=== PATIENT | male | born 1980 | race Caucasian/White ===

== ENCOUNTER 2017-03-09 12:35 | Emergency (ER) | payer OTHER ==
[~2017-03-09] VITALS: Ht 177.8 cm; Wt 86.2 kg
[2017-03-09 13:04] LABS: ABSOLUTE BASOPHIL COUNT 0.1 /CUMM (0.0-0.2); ABSOLUTE EOSINOPHIL COUNT 0.1 /CUMM (0.0-0.7); ABSOLUTE GRANULOCYTE CT 10.4 /CUMM (1.4-6.5); ABSOLUTE LYMPH COUNT 1.8 /CUMM (1.2-3.4); ABSOLUTE MONOCYTE COUNT 0.5 /CUMM (0.10-0.60); BASOPHIL % 0.4 % (0.0-2.0); EOSINOPHIL % 0.5 % (0-5); MEAN CORPUSCULAR HGB 30.2 PG (27.0-31.0); MEAN CORPUSCULAR HGB CONC 34.4 G/DL (33.0-37.0); MEAN CORPUSCULAR VOLUME 87.8 FL (80.0-94.0); MEAN PLATELET VOLUME 8.5 FL (7.4-10.4); PLATELET COUNT 229 /CUMM (130-400); RBC DISTRIBUTION WIDTH 12.9 % (11.5-14.5); RED BLOOD CELL CT 5.47 /CUMM (4.70-6.10); WHITE BLOOD CELL COUNT 12.8 /CUMM (4.8-10.8)
[2017-03-09 13:06] LABS: GRANULOCYTE % 81.1 % (42.2-75.2)
--- NOTE | 2017-03-09 13:51 | ED GI/GU/ABDOMINAL COMPLAINT ---
History of Present Illness General Chief Complaint: General Adult Stated Complaint: URI;VOMITING;CHEST CONGESTION Source: patient, family, old records Exam Limitations: no limitations Vital Signs & Intake/Output Vital Signs & Intake/Output Vital Signs Date Time Temp Pulse Resp B/P B/P Pulse O2 O2 Flow FiO2 Mean Ox Delivery Rate 03/09 1242 97.5 88 18 132/90 99 Room Air Allergies Coded Allergies: Penicillins (Severe, SWELL UP 02/19/16) Reconcile Medications Albuterol Sulfate (Proair Hfa) 90 MCG HFA.AER.AD 2-4 PUF INH Q4-6 PRN PRN shortness of breath Azithromycin (Zithromax) 250 MG TABLET 1 TAB PO DAILY bronchitis 2 tabs today then 1 tab for then next 4 days Benzonatate (Tessalon Perle) 100 MG CAPSULE 1 CAP PO TID PRN cough Famotidine (Pepcid) 20 MG TABLET 1 TAB PO BID gastritis Metoclopramide HCl (Reglan) 10 MG TABLET 1 TAB PO 4 TIMES/DAY PRN nausea/ vomiting 30 minutes before meals and bedtime Ondansetron (Zofran Odt) 4 MG TAB.RAPDIS 1 TAB SL TID PRN nausea Ranitidine HCl (Zantac) (Unknown Strength) TABLET (Unknown Dose) PO DAILY ACID REFLUX (Reported) Triage Note: PT COMPLAINS OF COUGH PRODUCTIVE OF GREEN SPUTUM FOR THE PAST 4 DAYS. ALSO STATES THAT FOR THE PAST 1.5 MONTHS HE HAS BEEN GETTING N/V ABD PAIN AFTER EATING. STATES THAT HE JUST FEELS WEAK , UNABLE TO SLEEP WELL Triage Nurses Notes Reviewed? yes Onset: 1 month Duration: day(s):, constant, continues in ED Timing: recent history Quality/Severity: aching, moderate, vomiting Location: epigastric, right upper quadrant Radiation: no radiation Activities at Onset: eating Prior Abdominal Problems: none Past Sexual History: Unobtainable at this time Modifying Factors: Worsens With: eating. Associated Symptoms: abdominal pain, loss of appetite, nausea/vomiting HPI: 1 month prior to admission patient began his final tapering of Suboxone last dose 2 days ago. Over this time. He complains of nausea vomiting heartburn reflux epigastric and right upper quadrant pain described as achy nonradiating occurring intermittently with changes in stooling. 4 days prior to admission he complains of nasal congestion productive cough of yellow sputum malaise. He denies fever chills chest pain shortness of breath headache dysuria rash bleeding. Past History Travel History Traveled to [place] past 21 day No Medical History Any Pertinent Medical History? 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 No Review of Systems Review of Systems Constitutional: Reports: see HPI, malaise. EENTM: Reports: see HPI, nasal congestion. Respiratory: Reports: see HPI. Cardiovascular: Reports: no symptoms. GI: Reports: see HPI, abdominal pain, nausea, changes in stool, vomiting. Genitourinary: Reports: no symptoms. Musculoskeletal: Reports: no symptoms. Skin: Reports: no symptoms. Neurological/Psychological: Reports: no symptoms. Hematologic/Endocrine: Reports: no symptoms. Immunologic/Allergic: Reports: no symptoms. All Other Systems: Reviewed and Negative Physical Exam Physical Exam General Appearance: well developed/nourished, alert, awake, anxious, moderate distress, obese Head: atraumatic, normal appearance, tenderness (frontal sinus percussion) Eyes: Bilateral: normal appearance, PERRL, EOMI, normal inspection. Ears, Nose, Throat, Mouth: hearing grossly normal, moist mucous membrane Neck: normal inspection, supple, full range of motion, normal alignment Respiratory: normal breath sounds, chest non-tender, no respiratory distress, quiet respiration, lungs clear Cardiovascular: regular rate/rhythm, normal peripheral pulses, norml femoral pulses equa Peripheral Pulses: 4+ carotid (R), 4+ carotid (L) Gastrointestinal: normal bowel sounds, soft, non-tender, no organomegaly Male Genitals: normal genitalia Back: normal inspection, normal range of motion Extremities: normal range of motion, no ligament instability Neurologic/Psych: no motor/sensory deficits, awake, alert, oriented x 3, normal gait, normal mood/affect Skin: intact, normal color, warm/dry Core Measures ACS in differential dx? No Severe Sepsis Present: No Septic Shock Present: No Progress Differential Diagnosis: biliary colic, cholecystitis, gastritis, pancreatitis, UTI/pyelo Plan of Care: Orders Procedure Date/time Status URINALYSIS 03/09 1421 Complete LIPASE 03/09 1245 Complete LACTIC ACID 03/09 1245 Complete COMPREHENSIVE METABOLIC PANEL 03/09 1245 Complete CBC WITHOUT DIFFERENTIAL 03/09 1245 Complete AMYLASE 03/09 1245 Complete Current Medications Sig/Ximena Start time Last Medication Dose Stop Time Status Admin Oxymetazoline HCl 2 SPRAY ONCE ONE 03/09 1500 UNVr (Afrin) 03/09 1501 Laboratory Tests 03/09/17 1430: Urine Color STRAW, Urine Clarity CLEAR, Urine pH 7.0, Ur Specific Haskell <= 1.005, Urine Protein NEG, Urine Ketones NEG, Urine Nitrite NEG, Urine Bilirubin NEG, Urine Urobilinogen 0.2, Ur Leukocyte Esterase NEG, Ur Microscopic EXAM NOT REQUIRED, Urine Hemoglobin NEG, Urine Glucose NEG 03/09/17 1253: Anion Gap 13, Estimated GFR > 60, BUN/Creatinine Ratio 11.0, Glucose 111 H, Lactic Acid 1.0, Calcium 9.8, Total Bilirubin 0.9, AST 45, ALT 61, Alkaline Phosphatase 91, Total Protein 7.7, Albumin 5.0, Globulin 2.7, Albumin/Globulin Ratio 1.9, Amylase 47, Lipase 42, CBC w Diff NO MAN DIFF REQ, RBC 5.47, MCV 87.8 , MCH 30.2, RDW 12.9, MPV 8.5, Gran % 81.1 H, Lymphocytes % 14.3 L, Monocytes % 3.7, Eosinophils % 0.5, Basophils % 0.4, Absolute Granulocytes 10.4 H, Absolute Lymphocytes 1.8, Absolute Monocytes 0.5, Absolute Eosinophils 0.1, Absolute Basophils 0.1, PUBS MCHC 34.4 Diagnostic Imaging: Viewed by Me: Radiology Read, CT Scan. Discussed w/RAD: Radiology Read, CT Scan. Radiology Impression: No acute findings of the abdomen or pelvis. No acute inflammatory changes. Hypoattenuating right renal lesions measure slightly higher than simple fluid. Consider nonemergent renal ultrasound to further clarify. CXR Impression: no acute abnormality Initial ED EKG: none Departure Departure Time of Disposition: 1455 Disposition: HOME OR SELF CARE Condition: Stable Clinical Impression Primary Impression: Sinusitis Secondary Impressions: Abdominal pain, Bronchitis, Nausea & vomiting Referrals: PATIENT HAS NO PRIMARY CARE DR (PCP/Family) Departure Forms: Customer Survey General Discharge Information RELEASE- WORK Prescriptions: Current Visit Scripts Azithromycin (Zithromax) 1 TAB PO DAILY #6 TAB 2 tabs today then 1 tab for then next 4 days Famotidine (Pepcid) 1 TAB PO BID #60 TAB Metoclopramide HCl (Reglan) 1 TAB PO 4 TIMES/DAY PRN nausea/vomiting #50 TAB 30 minutes before meals and bedtime Ondansetron (Zofran Odt) 1 TAB SL TID PRN nausea #10 TAB Albuterol Sulfate (Proair Hfa) 2-4 PUF INH Q4-6 PRN PRN shortness of breath #1 INHAL Benzonatate (Tessalon Perle) 1 CAP PO TID PRN cough #21 CAP
--- NOTE | 2017-03-09 14:26 | CT SCAN REPORT ---
EXAMINATION: CT ABDOMEN WITH CONTRAST CLINICAL INFORMATION: Nausea and vomiting. Diarrhea. Abdominal pain. COMPARISON: None TECHNIQUE: Multidetector volumetric imaging was performed of the abdomen following administration of 95 mL Optiray 320 intravenous contrast. Sagittal and coronal reformatted images were obtained on the technologist's workstation. DLP: 332 mGy-cm FINDINGS: LUNG BASES: The visualized lung bases are unremarkable. LIVER, GALLBLADDER, AND BILIARY TREE: The liver is normal in size, shape, and attenuation. No focal hepatic lesion or biliary ductal dilatation is present. The gallbladder is unremarkable with no evidence of radiopaque gallstones, gallbladder wall thickening, or obvious pericholecystic inflammatory changes. PANCREAS: Unremarkable. SPLEEN: Unremarkable. ADRENAL GLANDS: Unremarkable. KIDNEYS AND URETERS: The kidneys are normal in size, shape, and attenuation. No hydronephrosis, hydroureter, or calculi seen. No perinephric stranding. There is a 1.2 cm hypoattenuating right upper pole lesion which measures slightly higher than simple fluid attenuation. An adjacent hypoattenuating lesion also measures slightly higher than simple fluid. GASTROINTESTINAL TRACT: The stomach and small bowel are unremarkable. No dilated loops of bowel or evidence of obstruction. Normal appendix. The majority of the colon is decompressed which limits evaluation for wall thickening. No definite evidence of wall thickening. No adjacent inflammatory change. No free air or free fluid. ABDOMINAL WALL: No significant hernia is appreciated. LYMPH NODES: Normal. VASCULAR: Unremarkable. OSSEOUS STRUCTURES: No acute or suspicious osseous abnormality. IMPRESSION: No acute findings of the abdomen or pelvis. No acute inflammatory changes. Hypoattenuating right renal lesions measure slightly higher than simple fluid. Consider nonemergent renal ultrasound to further clarify.
--- NOTE | 2017-03-09 14:28 | RADIOLOGY REPORT ---
EXAMINATION: XR CHEST CLINICAL INFORMATION: Productive cough. COMPARISON: None TECHNIQUE: 2 views of the chest were obtained. FINDINGS: The cardiomediastinal silhouette is unremarkable. The lungs and pleural spaces appear clear without evidence of congestion, consolidation, or significant appearing effusion or atelectasis. There is no evidence of pneumothorax or pulmonary edema. Included osseous structures appear largely unremarkable. IMPRESSION: Unremarkable examination.
[2017-03-09] MEDS ORDERED: ZANTAC150 M1 PO (14:37)
[2017-03-09] MEDS ORDERED: TESSALON PERLE100 M1 PO (14:59)
[2017-03-09] MEDS ORDERED: PROAIR HFA8.5 GM INH (14:59)
[2017-03-09] MEDS ORDERED: PEPCID20 M1 PO (14:59)
[2017-03-09] MEDS ORDERED: ZOFRAN ODT4 M1 SL (14:59)
[2017-03-09] MEDS ORDERED: ZITHROMAX250 M2 PO (14:59)
[2017-03-09] MEDS ORDERED: REGLAN10 M1 PO (14:59)
[2017-03-09 15:02] VITALS: BP 133/80
== END 2017-03-09 15:34 ==
LOC: ERH 12:35
PROVIDERS: Emergency Medicine
DX: J32.9 Chronic sinusitis, unspecified (principal); J40 Bronchitis, not specified as acute or chronic; R11.2 Nausea with vomiting, unspecified; R10.13 Epigastric pain
CPT/HCPCS: 74177; 81003; 96374; 96375; J0131; J2765; Q9965

== ENCOUNTER 2018-03-04 19:42 | Emergency (ER) | payer OTHER ==
[~2018-03-04] VITALS: Ht 177.8 cm; Wt 88.5 kg
[~2018-03-04 19:42] MED LIST: BACTRIM DS TAB1 EACH PO; CLEOCIN HCL300 M1 PO; IBUPROFEN800 M1 PO; PEPCID20 M1 PO; PROAIR HFA8.5 GM INH; REGLAN10 M1 PO; TESSALON PERLE100 M1 PO; ZANTAC150 M1 PO; ZITHROMAX250 M2 PO; ZOFRAN ODT4 M1 SL
[2018-03-04 20:08] VITALS: BP 146/87
--- NOTE | 2018-03-04 20:49 | ED UPPER/LOWER EXTREMITY COMPL ---
History of Present Illness General Chief Complaint: Lower Extremity Problems Stated Complaint: RIGHT LEG PAIN Source: patient Exam Limitations: no limitations Vital Signs & Intake/Output Vital Signs & Intake/Output Vital Signs Date Time Temp Pulse Resp B/P B/P Pulse O2 O2 Flow FiO2 Mean Ox Delivery Rate 03/04 2008 98.2 91 18 146/87 98 Room Air Allergies Coded Allergies: Penicillins (Severe, SWELL UP 02/19/16) Reconcile Medications Albuterol Sulfate (Proair Hfa) 90 MCG HFA.AER.AD 2-4 PUF INH Q4-6 PRN PRN shortness of breath Azithromycin (Zithromax) 250 MG TABLET 1 TAB PO DAILY bronchitis 2 tabs today then 1 tab for then next 4 days Benzonatate (Tessalon Perle) 100 MG CAPSULE 1 CAP PO TID PRN cough Clindamycin HCl (Cleocin HCl) 300 MG CAPSULE 1 CAP PO TID abscess Cyclobenzaprine HCl 10 MG TABLET 1 TAB PO TID PRN PAIN Famotidine (Pepcid) 20 MG TABLET 1 TAB PO BID gastritis Ibuprofen 800 MG TABLET 1 TAB PO TID PRN pain Metoclopramide HCl (Reglan) 10 MG TABLET 1 TAB PO 4 TIMES/DAY PRN nausea/ vomiting 30 minutes before meals and bedtime Ondansetron (Zofran Odt) 4 MG TAB.RAPDIS 1 TAB SL TID PRN nausea Ranitidine HCl (Zantac) (Unknown Strength) TABLET (Unknown Dose) PO DAILY ACID REFLUX (Reported) Sulfamethoxazole/Trimethoprim (Bactrim Ds Tablet) 800 MG-160 MG TABLET 1 TAB PO BID abscess Triage Note: PT FROM HOME C/O RIGHT KNEE PAIN X1 WEEK, PT WAS SEEN AT WALK IN CLINIC TODAY AND TOLD TO COME TO THE ER FOR AN ULTRSOUND TO R/O CLOT. PT STATES HE NOTICED THE SWELLING, REDNESS, AND WARM TO TOUCH TODAY. VSS. Triage Nurses Notes Reviewed? yes HPI: 38M no PMH presents with one day of right knee and calf swelling. Noticed it over the course of the day. He has no pain, warmth, or burning in the area, but it is significantly more swollen than his left. He drove down and back from [place] in late December, smokes, and fell off a ladder a week ago, but did not break any bones. No family history of VTE. Denies chest pain, palpitations, SOB, lightheadedness. Past History Travel History Traveled to [place] past 21 day No Medical History Any Pertinent Medical History? 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 No Review of Systems Review of Systems Constitutional: Reports: no symptoms. EENTM: Reports: no symptoms. Respiratory: Reports: no symptoms. Cardiovascular: Reports: no symptoms. Gastrointestinal/Abdominal: Reports: no symptoms. Genitourinary: Reports: no symptoms. Musculoskeletal: Reports: no symptoms. Skin: Reports: no symptoms. Neurological/Psychological: Reports: no symptoms. Hematologic/Endocrine: Reports: no symptoms. Immunological: Reports: no symptoms. All Other Systems: Reviewed and Negative Physical Exam Physical Exam General Appearance: well developed/nourished, no apparent distress Head: atraumatic, normal appearance Eyes: Bilateral: normal appearance. Ears, Nose, Throat: hearing grossly normal Neck: normal inspection, supple, full range of motion Cardiovascular/Respiratory: normal breath sounds, regular rate/rhythm Back: normal inspection, normal range of motion Leg Left: normal range of motion, normal inspection Leg Right: swollen, erythematous, warm calf Skin: intact, normal color, warm/dry Progress Differential Diagnosis: arterial insufficiency, cellulitis, CHF, compartment syndrome, contusion, dislocation, DVT, fracture, gout, septic arthritis, sprain, tendon injury Plan of Care: Current Medications Sig/Ximena Start time Last Medication Dose Stop Time Status Admin Apixaban 10 MG ONCE ONE 03/04 2100 UNVr (Eliquis) 03/04 2101 Ultrasound unavailable. Given Eliquis, will return in the morning for doppler of the right leg. Patient understands risks and consequences of not following up in the morning. Departure Departure Disposition: HOME OR SELF CARE Condition: Stable Clinical Impression Primary Impression: DVT (deep venous thrombosis) Qualifiers: DVT location: lower extremity Affected thrombotic vein of extremity : unspecified vein of extremity Chronicity: acute Laterality: right Qualified Code: I82.401 - Acute embolism and thrombosis of unspecified deep veins of right lower extremity Referrals: Patient Has No Primary Care Dr (PCP/Family) Additional Instructions: Return to ER tomorrow morning between 8am-11am for an ultrasound of your leg. Return to ER if chest pain, shortness of breath, lightheadedness, palpitations, worsening leg swelling, or any other new or worsening symptoms. Departure Forms: Customer Survey General Discharge Information
[2018-03-05] MEDS ORDERED: CYCLOBENZAPRINE10 M1 PO (09:25)
== END 2018-03-04 21:06 ==
LOC: ERH 19:42
DX: I82.401 Acute embolism and thrombosis of unspecified deep veins of right lower extremity (principal)

== ENCOUNTER 2018-03-05 08:11 | Emergency (ER) | payer OTHER ==
[~2018-03-05] VITALS: Ht 177.8 cm; Wt 88.5 kg
--- NOTE | 2018-03-05 08:59 | ED GENERAL ADULT ---
History of Present Illness General Chief Complaint: Lower Extremity Problems Stated Complaint: RT LEG BLD CLOT HERE FOR US/ Source: patient Exam Limitations: no limitations Vital Signs & Intake/Output Vital Signs & Intake/Output Vital Signs Date Time Temp Pulse Resp B/P B/P Pulse O2 O2 Flow FiO2 Mean Ox Delivery Rate 03/05 928 99.0 80 20 134/88 98 Room Air 03/05 0904 Room Air 03/05 0817 98.6 89 16 127/69 95 Room Air Allergies Coded Allergies: Penicillins (Severe, SWELL UP 02/19/16) Reconcile Medications Albuterol Sulfate (Proair Hfa) 90 MCG HFA.AER.AD 2-4 PUF INH Q4-6 PRN PRN shortness of breath Azithromycin (Zithromax) 250 MG TABLET 1 TAB PO DAILY bronchitis 2 tabs today then 1 tab for then next 4 days Benzonatate (Tessalon Perle) 100 MG CAPSULE 1 CAP PO TID PRN cough Clindamycin HCl (Cleocin HCl) 300 MG CAPSULE 1 CAP PO TID abscess Cyclobenzaprine HCl 10 MG TABLET 1 TAB PO TID PRN PAIN Famotidine (Pepcid) 20 MG TABLET 1 TAB PO BID gastritis Ibuprofen 800 MG TABLET 1 TAB PO TID PRN pain Metoclopramide HCl (Reglan) 10 MG TABLET 1 TAB PO 4 TIMES/DAY PRN nausea/ vomiting 30 minutes before meals and bedtime Ondansetron (Zofran Odt) 4 MG TAB.RAPDIS 1 TAB SL TID PRN nausea Ranitidine HCl (Zantac) (Unknown Strength) TABLET (Unknown Dose) PO DAILY ACID REFLUX (Reported) Sulfamethoxazole/Trimethoprim (Bactrim Ds Tablet) 800 MG-160 MG TABLET 1 TAB PO BID abscess Triage Note: PT HERE FOR US STATES HE WAS HERE YETERDAY BUT US NOT AVAILABLE WAS TOLD TO RETURN TODAY. SWELLING TO RIGHT LOWER EXT. Triage Nurses Notes Reviewed? yes Onset: Abrupt Duration: day(s): (2), constant, continues in ED, getting worse Timing: single episode today Injury Environment: home Severity: moderate, severe Severity Numbers: 8 No Modifying Factors: none Modifying Factors: Worsens With: movement. HPI: 38-year-old male history of alcohol dependence presents for evaluation of pain and swelling in his right lower extremity. Patient was seen here yesterday for evaluation of possible DVT. Ultrasound was not available so he was started on Elquis and told to return today for an ultrasound. Patient reports that he has had pain in his right knee for several weeks that is gradually getting worse. Several days ago he noted that the right lower LEG was starting to swell and become more painful. He went to an orthopedic doctor who thought he might have a meniscus tear at that he needed to get an ultrasound to rule out DVT. Patient denies any chest pain shortness of breath fever redness. No ankle pain or hip pain. The pain is worse with weightbearing and walking but is able WALK. (Ricco Patel) Past History Travel History Traveled to [place] past 21 day No Medical History Any Pertinent Medical History? 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 No (Ricco Patel) Review of Systems Review of Systems Constitutional: Reports: no symptoms. EENTM: Reports: no symptoms. Respiratory: Reports: no symptoms. Cardiovascular: Reports: no symptoms. GI: Reports: no symptoms. Genitourinary: Reports: no symptoms. Musculoskeletal: Reports: see HPI, joint pain, joint swelling, muscle pain, muscle stiffness. Skin: Reports: no symptoms. Neurological/Psychological: Reports: no symptoms. Hematologic/Endocrine: Reports: no symptoms. Immunologic/Allergic: Reports: no symptoms. All Other Systems: Reviewed and Negative (Ricco Patel) Physical Exam Physical Exam General Appearance: well developed/nourished, no apparent distress, alert, awake Head: atraumatic, normal appearance Eyes: Bilateral: normal appearance, EOMI. Ears, Nose, Throat: hearing grossly normal Neck: normal inspection, supple, full range of motion Respiratory: normal breath sounds, chest non-tender, no respiratory distress, lungs clear Cardiovascular: regular rate/rhythm, normal peripheral pulses Peripheral Pulses: 2+ tibialis posterior (R), 2+ tibialis posterior (L), 2+ dorsalis pedis (R), 2+ dorsalis pedis (L) Back: normal inspection, normal range of motion Extremities: THERE IS DIFFUSE SWELLING OF THE RIGHT KNEE AND RIGHT ANTERIOR POSTERIOR LOWER LEG. tHERE IS NO REDNESS BRUISING. nO FOCAL FLEXION AREAS OR DISCHARGE. tHERE IS TENDERNESS TO PALPATION OF THE AREA OF THE MEDIAL MENISCUS. tHERE IS PAIN WITH RANGE OF MOTION OF THE RIGHT KNEE AND WITH DORSIFLEXION AND PLANTAR FLEXION OF THE RIGHT FOOT/ANKLE. nEUROVASCULAR SUPPLY IS INTACT TO THE RIGHT LOWER EXTREMITY. Neurologic/Psych: no motor/sensory deficits, awake, alert, oriented x 3, normal gait, normal mood/affect Skin: intact, normal color, warm/dry Lymphatic: no anterior cervical satinder Core Measures ACS in differential dx? No CVA/TIA Diagnosis: No Sepsis Present: No Sepsis Focused Exam Completed? No (Srikanth SANTIZO,Ricco) Progress Differential Diagnoses I considered the following diagnoses in my evaluation of the patient: [DVT, muscle strain, ligamentous injury, OA, rhabdo, cellulitis] Plan of Care: Orders Procedure Date/time Status US-DUPLEX VENOUS EXTREM UNI 03/05 814 Active Patient is here for an ultrasound to rule out DVT he was seen here yesterday with right LE swelling. Ultrasound was ordered and is negative for DVT. Advised rest ice elevation and compression. Tylenol and Flexeril for pain. Discontinue all ELIQUIS. Patient has an appointment on Tuesday with orthopedics. Discussed return cautious patient agrees the plan Diagnostic Imaging: Viewed by Me: Ultrasound. Discussed w/RAD: Ultrasound. Radiology Impression: PATIENT: OMI WHITE PRESENT AGE: 38 PATIENT ACCOUNT NO: [id number] : 78 LOCATION: [facility] ORDERING PHYSICIAN: Sharif Jackson MD SERVICE DATE: 03/05/18 EXAM TYPE: US - US-DUPLEX VENOUS EXTREM UNI EXAMINATION: US TRIPLEX LOWER EXTREMITY, RIGHT CLINICAL INFORMATION: Right lower extremity edema. COMPARISON: None TECHNIQUE: Color-flow triplex imaging with spectral analysis and compression Doppler were performed on the lower extremity. FINDINGS: Respiratory variation, normal compression and augmented flow are noted throughout the lower extremity. The visualized common femoral vein, superficial femoral vein, profunda femoral vein, popliteal vein and midcalf peroneal and posterior tibial venous segments show no evidence of deep venous thrombosis. There is no Galdamez's cyst. IMPRESSION : No evidence of deep venous thrombosis involving the lower extremity. DICTATED BY: Iliana Foreman MD DATE/TIME DICTATED:03/05/18903 TRADE MARKER: ALEJANDRO DATE/TIME TRANSCRIBED:03/05/18903 CONFIDENTIAL, DO NOT COPY WITHOUT APPROPRIATE AUTHORIZATION. <Electronically signed in Other Vendor System> SIGNED BY: Iliana Foreman MD 03/05/18908 Initial ED EKG: none (Ricco Patel) Departure Departure Disposition: HOME OR SELF CARE Condition: Stable Clinical Impression Primary Impression: Right knee pain Qualifiers: Chronicity: acute Qualified Code: M25.561 - Pain in right knee Referrals: Patient Has No Primary Care Dr (PCP/Family) Additional Instructions: Rest, keep YOUr knee and leg elevated. Apply ice for 15-20 minutes every few hours. Wear knee brace/compression stocking. Tylenol ibuprofen for pain. Cyclobenzaprine Is a muscle relaxer that can be used every 8 hours as needed this may cause DROWSINESS. Follow-up with the orthopedic doctor on Tuesday as scheduled. [place] for worsening swelling, redness, fever. Monitor symptoms return with any concernS. Departure Forms: Customer Survey General Discharge Information Prescriptions: Current Visit Scripts Cyclobenzaprine HCl 1 TAB PO TID PRN PAIN #30 TAB (Ricco Patel) PA/WINDOWS SERVER SUPPORT TECHNICIAN Co-Sign Statement Statement: ED Attending supervision documentation- [] I saw and evaluated the patient. I have also reviewed all the pertinent lab results and diagnostic results. I agree with the findings and the plan of care as documented in the PA's/WINDOWS SERVER SUPPORT TECHNICIAN's documentation. [X] I have reviewed the ED Record and agree with the PA's/WINDOWS SERVER SUPPORT TECHNICIAN's documentation. [] Additions or exceptions (if any) to the PAs/WINDOWS SERVER SUPPORT TECHNICIAN's note and plan are summarized below: [] (Manuel ARREOLA,Sharif Ryder) Critical Care Note Critical Care Note Critical Care Time: non-applicable (Ricco Patel)
--- NOTE | 2018-03-05 09:09 | ULTRASOUND REPORT ---
EXAMINATION: US TRIPLEX LOWER EXTREMITY, RIGHT CLINICAL INFORMATION: Right lower extremity edema. COMPARISON: None TECHNIQUE: Color-flow triplex imaging with spectral analysis and compression Doppler were performed on the lower extremity. FINDINGS: Respiratory variation, normal compression and augmented flow are noted throughout the lower extremity. The visualized common femoral vein, superficial femoral vein, profunda femoral vein, popliteal vein and midcalf peroneal and posterior tibial venous segments show no evidence of deep venous thrombosis. There is no Galdamez's cyst. IMPRESSION: No evidence of deep venous thrombosis involving the lower extremity.
[2018-03-05] MEDS ORDERED: CYCLOBENZAPRINE10 M1 PO (09:25)
[2018-03-05 09:28] VITALS: BP 134/88
== END 2018-03-05 09:35 ==
LOC: ERH 08:11
DX: M25.561 Pain in right knee (principal)